=== PATIENT | female | born 1955 | race Caucasian/White ===

== ENCOUNTER → 2016-10-02 | Outpatient (CLI) | payer OTHER ==
[2015-11-12 06:28] VITALS: BP 138/70
[~2016-10-02] MED LIST: ACETAMINOPHN-CO10 ML PO; AMOXICILLIN875 MG PO; CORICIDIN HBP1 EAC1 PO; FLEXERIL 1010 MG/TAB PO; FLONASE ALLERG9.9 ML NS; HYDROCHLOROTHIA1 T15 PO; PREMARIN 0.60.625 M1 PO; VITAMIN D32000 UNI1 PO; XANAX0.5 M1 PO
== END ==
LOC: RAD 08:21
DX: M54.5 Low back pain (principal); G89.29 Other chronic pain

== ENCOUNTER 2016-11-13 09:00 | Outpatient (RCR) | payer OTHER ==
[2015-11-12 06:28] VITALS: BP 138/70
== END 2016-11-13 09:33 | disposition home or self-care (01) ==
LOC: PT 09:00
DX: M54.5 Low back pain (principal)

== ENCOUNTER → 2017-04-30 | Outpatient (CLI) | payer OTHER ==
[2015-11-12 06:28] VITALS: BP 138/70
[2017-04-30 09:06] LABS: EOS # 0.1 (0.04-0.40); EOS % 2.3 % (1.0-5.0); HEMATOCRIT 42.5 % (37.0-47.0); HEMOGLOBIN 13.8 g/dL (12.5-16.0); LYMPH# 1.8 (1.50-4.00); MEAN CELL VOLUME 87 fl (78-100); MEAN CORPUSCULAR HEMOGLOBIN 28 pg (27-31); MEAN CORPUSCULAR HGB CONC 33 g/dL (33-37); MEAN PLATELET VOLUME 10.2 fl (7.4-10.4); MONO # 0.4 (0.20-0.80); PLATELET COUNT 264 K/mm3 (130-400); RED BLOOD COUNT 4.89 M/mm3 (4.10-5.30); RED CELL DISTRIBUTION WIDTH 13.8 % (11.5-14.5); WHITE BLOOD COUNT 5.3 K/mm3 (4.8-10.8)
[2017-04-30 09:23] LABS: ALBUMIN 4.4 g/dL (3.5-5.0); BUN/CREATININE RATIO 23.9 (6.0-26.0); POTASSIUM 4.1 mmol/L (3.6-5.0); TOTAL BILIRUBIN 0.4 mg/dL (0.2-1.3); TOTAL PROTEIN 7.9 g/dL (6.3-8.2)
== END ==
LOC: LAB 08:52
PROVIDERS: Nurse Practitioner Family
DX: R53.81 Other malaise (principal); Z13.220 Encounter for screening for lipoid disorders; E55.9 Vitamin D deficiency, unspecified; L23.5 Allergic contact dermatitis due to other chemical products; J01.41 Acute recurrent pansinusitis; B07.8 Other viral warts

== ENCOUNTER 2017-08-26 19:49 | Emergency (ER) | payer OTHER ==
[~2017-08-26] VITALS: Ht 170.2 cm; Wt 73.6 kg
[2017-08-26 20:31] LABS: EOS # 0.1 (0.04-0.40); EOS % 2.3 % (1.0-5.0); HEMATOCRIT 42.5 % (37.0-47.0); HEMOGLOBIN 13.4 g/dL (12.5-16.0); LYMPH# 2.3 (1.50-4.00); MEAN CELL VOLUME 88 fl (78-100); MEAN CORPUSCULAR HEMOGLOBIN 28 pg (27-31); MEAN CORPUSCULAR HGB CONC 32 g/dL (33-37); MEAN PLATELET VOLUME 11.2 fl (7.4-10.4); MONO # 0.4 (0.20-0.80); NEU # 2.9 (1.40-6.50); PLATELET COUNT 254 K/mm3 (130-400); RED BLOOD COUNT 4.83 M/mm3 (4.10-5.30); RED CELL DISTRIBUTION WIDTH 13.9 % (11.5-14.5); WHITE BLOOD COUNT 5.8 K/mm3 (4.8-10.8)
[2017-08-26 20:40] LABS: ALBUMIN 4.2 g/dL (3.5-5.0); BUN/CREATININE RATIO 25.3 (6.0-26.0); POTASSIUM 3.9 mmol/L (3.6-5.0); TOTAL BILIRUBIN 0.3 mg/dL (0.2-1.3); TOTAL PROTEIN 7.6 g/dL (6.3-8.2)
[2017-08-26 20:46] LABS: CKMB ISOENZYME 3.1 ng/mL (0.6-3.5); TROPONIN-I < 0.03 ng/mL (0.00-0.06)
[2017-08-26] MEDS ORDERED: PREDNISONE20 M1 PO (22:07)
[2017-08-26] MEDS ORDERED: TUSSIONEX PENN115 ML PO (22:07)
[2017-08-26] MEDS ORDERED: ALBUTEROL2.5 MG/3 M IH (22:07)
[2017-08-26] MEDS ORDERED: ZITHROMAX 250M250 MG PO (22:07)
[2017-08-26 22:35] VITALS: BP 164/97
== END 2017-08-26 22:35 | disposition home or self-care (01) ==
LOC: ED 19:49
PROVIDERS: Nurse Practitioner Primary Care
DX: J18.9 Pneumonia, unspecified organism (principal); Z79.899 Other long term (current) drug therapy
CPT/HCPCS: J0696; J2930

== ENCOUNTER → 2017-09-14 | Outpatient (CLI) | payer OTHER ==
[2017-08-26 22:35] VITALS: BP 164/97
[~2017-09-14] MED LIST changes: +ALBUTEROL2.5 MG/3 M IH; +PREDNISONE20 M1 PO; +TUSSIONEX PENN115 ML PO; +ZITHROMAX 250M250 MG PO
== END ==
LOC: RAD 13:48
DX: J18.9 Pneumonia, unspecified organism (principal)

== ENCOUNTER 2017-10-27 09:54 | Emergency (ER) | payer OTHER ==
[~2017-10-27] VITALS: Ht 170.2 cm; Wt 71.8 kg
[2017-10-27 10:27] LABS: HEMATOCRIT 39.2 % (37.0-47.0); MEAN CELL VOLUME 85 fl (78-100); MEAN CORPUSCULAR HEMOGLOBIN 28 pg (27-31); MEAN CORPUSCULAR HGB CONC 33 g/dL (33-37); MEAN PLATELET VOLUME 11.3 fl (7.4-10.4); PLATELET COUNT 204 K/mm3 (130-400); RED BLOOD COUNT 4.61 M/mm3 (4.10-5.30); RED CELL DISTRIBUTION WIDTH 14.1 % (11.5-14.5); WHITE BLOOD COUNT 11.7 K/mm3 (4.8-10.8)
[2017-10-27 10:35] LABS: BUN/CREATININE RATIO 19.1 (6.0-26.0); CALCIUM 9.1 mg/dL (8.4-10.2); LYMPHOCYTE 9 % (20-51); MONOCYTE 10 % (3-10); NEUTROPHILS 81 % (42-75); POTASSIUM 3.7 mmol/L (3.6-5.0); TOTAL BILIRUBIN 0.9 mg/dL (0.2-1.3); TOTAL PROTEIN 7.2 g/dL (6.3-8.2)
[2017-10-27 11:29] LABS: URINE APPEARANCE CLEAR; URINE BILIRUBIN NEGATIVE (NEGATIVE); URINE BLOOD NEGATIVE (NEGATIVE); URINE COLOR YELLOW; URINE GLUCOSE NEGATIVE (NEGATIVE); URINE KETONE SMALL (NEGATIVE); URINE LEUKOCYTE ESTERASE NEGATIVE (NEGATIVE); URINE NITRATE NEGATIVE (NEGATIVE); URINE PROTEIN(semi-quant) TRACE mg/dL (NEGATIVE); URINE UROBILINOGEN NORMAL (NORMAL)
[2017-10-27 11:30] LABS: URINE MUCUS PRESENT (NOT PRESENT); URINE WBC 0-1 /hpf (0-3)
[2017-10-27 11:40] LABS: D-DIMER 0.9 mg/L FEU (0.15-0.50)
[2017-10-27 15:17] VITALS: BP 135/61
== END 2017-10-27 15:10 | disposition short-term general hospital (02) ==
LOC: ED 09:54
PROVIDERS: Nurse Practitioner Primary Care
DX: R55 Syncope and collapse (principal); R79.89 Other specified abnormal findings of blood chemistry; J18.9 Pneumonia, unspecified organism; M54.5 Low back pain; Z79.899 Other long term (current) drug therapy
CPT/HCPCS: J2405; J7030; Q9967

== ENCOUNTER → 2017-12-23 | Outpatient (CLI) | payer OTHER ==
[2017-12-23 09:06] LABS: ALBUMIN 4.7 g/dL (3.5-5.0); CALCIUM 9.7 mg/dL (8.4-10.2); TOTAL BILIRUBIN 0.5 mg/dL (0.2-1.3); TOTAL PROTEIN 7.4 g/dL (6.3-8.2)
== END ==
LOC: LAB 08:26
PROVIDERS: Internal Medicine Cardiovascular Disease
DX: E78.5 Hyperlipidemia, unspecified (principal); Z79.01 Long term (current) use of anticoagulants

== ENCOUNTER 2018-01-05 08:26 | Outpatient (RCR) | payer OTHER | END 2018-04-05 | disposition home or self-care (01) | LOC: CARDREHAB | DX: I50.22 Chronic systolic (congestive) heart failure (principal) ==

== ENCOUNTER → 2018-02-02 | Outpatient (CLI) | payer OTHER | LOC: RAD 11:13 | DX: R22.42 Localized swelling, mass and lump, left lower limb (principal); S43.492A Other sprain of left shoulder joint, initial encounter; S93.402A Sprain of unspecified ligament of left ankle, initial encounter ==

== ENCOUNTER → 2018-02-18 | Outpatient (CLI) | payer OTHER ==
[2018-02-18 16:02] LABS: EOS # 0.1 (0.04-0.40); EOS % 2.1 % (1.0-5.0); HEMATOCRIT 35.1 % (37.0-47.0); HEMOGLOBIN 11.4 g/dL (12.5-16.0); LYMPH# 1.7 (1.50-4.00); MEAN CELL VOLUME 90 fl (78-100); MEAN CORPUSCULAR HEMOGLOBIN 29 pg (27-31); MEAN CORPUSCULAR HGB CONC 33 g/dL (33-37); MEAN PLATELET VOLUME 10.3 fl (7.4-10.4); MONO # 0.4 (0.20-0.80); NEU # 2.1 (1.40-6.50); PLATELET COUNT 225 K/mm3 (130-400); RED BLOOD COUNT 3.89 M/mm3 (4.10-5.30); RED CELL DISTRIBUTION WIDTH 16.7 % (11.5-14.5); WHITE BLOOD COUNT 4.3 K/mm3 (4.8-10.8)
[2018-02-18 16:15] LABS: ALBUMIN 4.5 g/dL (3.5-5.0); CALCIUM 9.3 mg/dL (8.4-10.2); POTASSIUM 3.5 mmol/L (3.6-5.0); TOTAL BILIRUBIN 0.6 mg/dL (0.2-1.3)
[2018-02-18 16:31] LABS: D-DIMER 0.2 mg/L FEU (0.15-0.50)
== END ==
LOC: LAB 15:39
PROVIDERS: Physician Assistant
DX: M25.572 Pain in left ankle and joints of left foot (principal)

== ENCOUNTER 2018-04-06 09:00 | Outpatient (RCR) | payer OTHER | END 2018-05-03 09:05 | disposition home or self-care (01) | LOC: CARDREHAB 09:00 | DX: I50.22 Chronic systolic (congestive) heart failure (principal) ==

== ENCOUNTER → 2018-07-07 | Outpatient (CLI) | payer OTHER ==
[2018-07-07 16:47] LABS: POTASSIUM 3.8 mmol/L (3.6-5.0)
== END ==
LOC: LAB 16:09
PROVIDERS: Internal Medicine Cardiovascular Disease
DX: I10 Essential (primary) hypertension (principal)

== ENCOUNTER → 2018-10-28 | Outpatient (CLI) | payer OTHER ==
[~2018-10-28] VITALS: Ht 170.2 cm; Wt 71.8 kg
[~2018-10-28] MED LIST changes: +ALDACTONE 25MG25 MG PO; +CARVEDILOL12.5 MG PO; +CETIRIZINE HCL10 MG PO; +ELIQUIS5 MG PO; +ENTRESTO 49 MG1 EACH PO; +FAMOTIDINE20 MG PO
[2018-10-28 08:21] LABS: ALBUMIN 4.2 g/dL (3.4-4.8); POTASSIUM 4.3 mmol/L (3.5-5.1)
[2018-10-28 08:22] LABS: CALCIUM 9.2 mg/dL (8.3-10.5)
[2018-10-28 08:24] LABS: PARTIAL THROMBOPLASTIN TIME 24.4 SECONDS (21.0-32.0); TOTAL PROTEIN 7.4 g/dL (6.2-8.1)
[2018-10-28 08:25] LABS: TOTAL BILIRUBIN 0.6 mg/dL (0.2-1.2)
[2018-10-28 08:31] LABS: EOS # 0.1 (0.04-0.40); EOS % 1.6 % (1.0-5.0); HEMATOCRIT 38.7 % (37.0-47.0); HEMOGLOBIN 12.3 g/dL (12.5-16.0); LYMPH# 1.7 (1.50-4.00); MEAN CELL VOLUME 91 fl (78-100); MEAN CORPUSCULAR HEMOGLOBIN 29 pg (27-31); MEAN CORPUSCULAR HGB CONC 32 g/dL (33-37); MONO # 0.3 (0.20-0.80); NEU # 2.3 (1.40-6.50); PLATELET COUNT 207 K/mm3 (130-400); RED BLOOD COUNT 4.24 M/mm3 (4.10-5.30); RED CELL DISTRIBUTION WIDTH 13.4 % (11.5-14.5); WHITE BLOOD COUNT 4.4 K/mm3 (4.8-10.8)
[2018-10-28 08:32] LABS: URINE APPEARANCE CLEAR; URINE BILIRUBIN NEGATIVE (NEGATIVE); URINE BLOOD NEGATIVE (NEGATIVE); URINE COLOR YELLOW; URINE GLUCOSE NEGATIVE (NEGATIVE); URINE KETONE NEGATIVE (NEGATIVE); URINE LEUKOCYTE ESTERASE TRACE (NEGATIVE); URINE MUCUS PRESENT (NOT PRESENT); URINE NITRATE NEGATIVE (NEGATIVE); URINE PROTEIN(semi-quant) NEGATIVE (NEGATIVE); URINE UROBILINOGEN NORMAL (NORMAL)
[2018-10-28 08:40] VITALS: BP 117/54
== END ==
LOC: AMSURD 07:52
PROVIDERS: Physician Assistant
DX: Z01.818 Encounter for other preprocedural examination (principal); N81.10 Cystocele, unspecified

== ENCOUNTER → 2019-01-13 | Outpatient (CLI) | payer OTHER ==
[2018-10-28 08:40] VITALS: BP 117/54
== END ==
LOC: RAD 11:00
DX: M19.011 Primary osteoarthritis, right shoulder (principal); R53.81 Other malaise; M62.81 Muscle weakness (generalized)

== ENCOUNTER → 2019-02-14 | Outpatient (CLI) | payer OTHER ==
[2018-10-28 08:40] VITALS: BP 117/54
== END ==
LOC: LAB 09:20
PROVIDERS: Psychiatry & Neurology Neurology
DX: M25.511 Pain in right shoulder (principal)

== ENCOUNTER 2019-02-18 07:14 | Emergency (ER) | payer OTHER ==
[~2019-02-18] VITALS: Ht 170.2 cm; Wt 81.8 kg
[2019-02-18] MEDS ORDERED: AZITHROMYCIN 500MGPK PO (07:32)
[2019-02-18] MEDS ORDERED: ALDACTONE25 M1 PO (07:32)
[2019-02-18] MEDS ORDERED: ATORVASTATIN CA20 MG PO (07:33)
[2019-02-18] MEDS ORDERED: HYDROCODONE AN473 M1 PO (07:34)
[2019-02-18 07:59] LABS: BASO # 0.1 (0.02-0.10); EOS # 0.2 (0.04-0.40); EOS % 2.6 % (1.0-5.0); HEMATOCRIT 40.1 % (37.0-47.0); HEMOGLOBIN 12.9 g/dL (12.5-16.0); LYMPH# 1.9 (1.50-4.00); MEAN CELL VOLUME 91 fl (78-100); MEAN CORPUSCULAR HEMOGLOBIN 29 pg (27-31); MEAN CORPUSCULAR HGB CONC 32 g/dL (33-37); MEAN PLATELET VOLUME 9.8 fl (7.4-10.4); MONO # 0.7 (0.20-0.80); NEU # 3.8 (1.40-6.50); PLATELET COUNT 245 K/mm3 (130-400); RED BLOOD COUNT 4.43 M/mm3 (4.10-5.30); RED CELL DISTRIBUTION WIDTH 13.1 % (11.5-14.5); WHITE BLOOD COUNT 6.6 K/mm3 (4.8-10.8)
[2019-02-18 08:02] LABS: POTASSIUM 4.6 mmol/L (3.5-5.1)
[2019-02-18] MEDS ORDERED: PHENERGAN 25 TA25 MG PO (08:05)
[2019-02-18] MEDS ORDERED: NORCO 325 MG-51 TA1 PO (08:05)
[2019-02-18 08:20] VITALS: BP 135/69
== END 2019-02-18 08:34 | disposition home or self-care (01) ==
LOC: ED 07:14
PROVIDERS: Nurse Practitioner Primary Care
DX: G97.1 Other reaction to spinal and lumbar puncture (principal); J40 Bronchitis, not specified as acute or chronic; I48.91 Unspecified atrial fibrillation; I25.10 Atherosclerotic heart disease of native coronary artery without angina pectoris; I25.2 Old myocardial infarction; F41.9 Anxiety disorder, unspecified; Z98.890 Other specified postprocedural states; Z88.6 Allergy status to analgesic agent
CPT/HCPCS: J2270; J2550

== ENCOUNTER 2019-04-01 09:00 | Outpatient (RCR) | payer OTHER ==
[2018-10-28 08:40] VITALS: BP 117/54
[~2019-04-01 09:00] MED LIST changes: +ALDACTONE25 M1 PO; +ATORVASTATIN CA20 MG PO; +AZITHROMYCIN 500MGPK PO; +HYDROCODONE AN473 M1 PO; +NORCO 325 MG-51 TA1 PO; +PHENERGAN 25 TA25 MG PO
== END 2019-04-01 09:30 | disposition still patient (30) ==
LOC: OT 09:00
DX: G56.01 Carpal tunnel syndrome, right upper limb (principal)

== ENCOUNTER 2019-04-15 08:30 | Outpatient (RCR) | payer OTHER | END 2019-04-15 09:00 | disposition still patient (30) | LOC: PT 08:30 | DX: M75.111 Incomplete rotator cuff tear or rupture of right shoulder, not specified as traumatic (principal) ==

== ENCOUNTER → 2019-08-16 | Outpatient (CLI) | payer OTHER ==
[2019-08-16 12:05] LABS: EOS # 0.1 (0.04-0.40); EOS % 2.8 % (1.0-5.0); HEMATOCRIT 38.7 % (37.0-47.0); LYMPH# 1.8 (1.50-4.00); MEAN CELL VOLUME 89 fl (78-100); MEAN CORPUSCULAR HEMOGLOBIN 28 pg (27-31); MEAN CORPUSCULAR HGB CONC 31 g/dL (33-37); MEAN PLATELET VOLUME 10.5 fl (7.4-10.4); MONO # 0.3 (0.20-0.80); NEU # 2.1 (1.40-6.50); PLATELET COUNT 234 K/mm3 (130-400); RED BLOOD COUNT 4.35 M/mm3 (4.10-5.30); RED CELL DISTRIBUTION WIDTH 13.6 % (11.5-14.5); WHITE BLOOD COUNT 4.4 K/mm3 (4.8-10.8)
[2019-08-16 12:10] LABS: ALBUMIN 4.4 g/dL (3.4-4.8); POTASSIUM 4.6 mmol/L (3.5-5.1)
[2019-08-16 12:11] LABS: CALCIUM 9.5 mg/dL (8.3-10.5)
[2019-08-16 12:13] LABS: TOTAL PROTEIN 7.3 g/dL (6.2-8.1)
[2019-08-16 12:14] LABS: TOTAL BILIRUBIN 0.5 mg/dL (0.2-1.2)
== END ==
LOC: LAB 11:42
PROVIDERS: Physician Assistant
DX: Z13.29 Encounter for screening for other suspected endocrine disorder (principal); I11.0 Hypertensive heart disease with heart failure; I50.20 Unspecified systolic (congestive) heart failure; I48.91 Unspecified atrial fibrillation; R63.5 Abnormal weight gain

== ENCOUNTER 2019-09-05 10:00 | Outpatient (RCR) | payer OTHER | END 2019-11-20 | disposition still patient (30) | LOC: PT | DX: M79.601 Pain in right arm (principal) ==

== ENCOUNTER → 2020-03-27 | Outpatient (CLI) | payer OTHER ==
[2020-03-27 09:48] LABS: EOS # 0.2 (0.04-0.40); HEMATOCRIT 40.7 % (37.0-47.0); LYMPH# 1.7 (1.50-4.00); MEAN CELL VOLUME 86 fl (78-100); MEAN CORPUSCULAR HEMOGLOBIN 27 pg (27-31); MEAN CORPUSCULAR HGB CONC 32 g/dL (33-37); MEAN PLATELET VOLUME 11.1 fl (7.4-10.4); MONO # 0.4 (0.20-0.80); NEU # 3.7 (1.40-6.50); PLATELET COUNT 244 K/mm3 (130-400); RED BLOOD COUNT 4.76 M/mm3 (4.10-5.30); RED CELL DISTRIBUTION WIDTH 13.7 % (11.5-14.5)
[2020-03-27 09:56] LABS: POTASSIUM 4.7 mmol/L (3.5-5.1)
[2020-03-27 09:57] LABS: ALBUMIN 4.5 g/dL (3.4-4.8)
[2020-03-27 09:58] LABS: CALCIUM 9.4 mg/dL (8.3-10.5)
[2020-03-27 09:59] LABS: TOTAL PROTEIN 7.4 g/dL (6.2-8.1)
[2020-03-27 10:01] LABS: TOTAL BILIRUBIN 0.6 mg/dL (0.2-1.2)
== END ==
LOC: LAB 09:08
PROVIDERS: Physician Assistant
DX: I10 Essential (primary) hypertension (principal); E78.5 Hyperlipidemia, unspecified; R53.83 Other fatigue; D64.9 Anemia, unspecified; R74.8 Abnormal levels of other serum enzymes

== ENCOUNTER 2020-05-17 09:50 | Outpatient (RCR) | payer OTHER | END 2020-06-07 17:00 | disposition home or self-care (01) | LOC: PT 09:50 | DX: M79.601 Pain in right arm (principal) ==

== ENCOUNTER → 2021-07-04 | Outpatient (CLI) | payer OTHER ==
[2021-07-04 12:09] LABS: HEMATOCRIT 43.5 % (37.0-47.0); HEMOGLOBIN 14.1 g/dL (12.5-16.0); MEAN PLATELET VOLUME 9.9 fl (7.4-10.4); RED BLOOD COUNT 4.98 M/mm3 (4.10-5.30); RED CELL DISTRIBUTION WIDTH 14.1 % (11.5-14.5); WHITE BLOOD COUNT 5.8 K/mm3 (4.8-10.8)
[2021-07-04 12:18] LABS: ALBUMIN 4.3 g/dL (3.4-4.8)
[2021-07-04 12:19] LABS: POTASSIUM 4.8 mmol/L (3.5-5.1)
[2021-07-04 12:21] LABS: TOTAL PROTEIN 7.3 g/dL (6.2-8.1)
[2021-07-04 12:23] LABS: TOTAL BILIRUBIN 0.7 mg/dL (0.2-1.2)
[2021-07-04 12:28] LABS: MAGNESIUM 2.07 mg/dL (1.60-2.60)
== END ==
LOC: LAB 11:53
PROVIDERS: Internal Medicine Cardiovascular Disease
DX: I48.0 Paroxysmal atrial fibrillation (principal)

== ENCOUNTER → 2022-04-14 | Outpatient (CLI) | payer MEDICARE, OTHER | LOC: RAD 11:19 | DX: R05.9 Cough, unspecified (principal) ==

== ENCOUNTER → 2022-06-17 | Outpatient (CLI) | payer MEDICARE, OTHER ==
[2022-06-17 12:30] LABS: BASO # 0.03 K/mm3 (0.02-0.10); EOS # 0.26 K/mm3 (0.04-0.40); EOS % 4.8 % (1.0-5.0); HEMATOCRIT 42.2 % (37.0-47.0); HEMOGLOBIN 13.4 g/dL (12.5-16.0); LYMPH# 1.58 K/mm3 (1.50-4.00); MEAN CELL VOLUME 87 fl (78-100); MEAN CORPUSCULAR HEMOGLOBIN 28 pg (27-31); MEAN CORPUSCULAR HGB CONC 32 g/dL (33-37); MEAN PLATELET VOLUME 10.4 fl (7.4-10.4); NEU # 3.26 K/mm3 (1.40-6.50); PLATELET COUNT 235 K/mm3 (130-400); RED BLOOD COUNT 4.86 M/mm3 (4.10-5.30); RED CELL DISTRIBUTION WIDTH 14.3 % (11.5-14.5); WHITE BLOOD COUNT 5.4 K/mm3 (4.8-10.8)
[2022-06-17 12:32] LABS: ALBUMIN 4.5 g/dL (3.4-4.8)
[2022-06-17 12:33] LABS: CALCIUM 9.7 mg/dL (8.3-10.5)
[2022-06-17 12:34] LABS: TOTAL PROTEIN 7.2 g/dL (6.2-8.1)
[2022-06-17 12:36] LABS: TOTAL BILIRUBIN 0.5 mg/dL (0.2-1.2)
== END ==
LOC: LAB 12:05
PROVIDERS: Physician Assistant
DX: Z00.00 Encounter for general adult medical examination without abnormal findings (principal); Z13.1 Encounter for screening for diabetes mellitus; Z12.31 Encounter for screening mammogram for malignant neoplasm of breast; I21.4 Non-ST elevation (NSTEMI) myocardial infarction; F43.22 Adjustment disorder with anxiety; I25.5 Ischemic cardiomyopathy; J30.2 Other seasonal allergic rhinitis; I11.0 Hypertensive heart disease with heart failure; I50.20 Unspecified systolic (congestive) heart failure; E55.9 Vitamin D deficiency, unspecified; K90.9 Intestinal malabsorption, unspecified

== ENCOUNTER → 2023-07-21 | Outpatient (CLI) | payer MEDICARE, OTHER ==
[2023-07-21 09:57] LABS: BASO # 0.03 K/mm3 (0.02-0.10); EOS # 0.13 K/mm3 (0.04-0.40); HEMOGLOBIN 13.4 g/dL (12.5-16.0); LYMPH# 1.42 K/mm3 (1.50-4.00); MEAN CELL VOLUME 88 fl (78-100); MEAN CORPUSCULAR HEMOGLOBIN 28 pg (27-31); MEAN CORPUSCULAR HGB CONC 32 g/dL (33-37); MONO # 0.34 K/mm3 (0.20-0.80); NEU # 2.46 K/mm3 (1.40-6.50); PLATELET COUNT 212 K/mm3 (130-400); RED BLOOD COUNT 4.75 M/mm3 (4.10-5.30); RED CELL DISTRIBUTION WIDTH 13.3 % (11.5-14.5); WHITE BLOOD COUNT 4.4 K/mm3 (4.8-10.8)
[2023-07-21 10:03] LABS: ALBUMIN 4.3 g/dL (3.4-4.8)
[2023-07-21 10:04] LABS: CALCIUM 9.5 mg/dL (8.3-10.5)
[2023-07-21 10:05] LABS: TOTAL PROTEIN 6.9 g/dL (6.2-8.1)
[2023-07-21 10:07] LABS: TOTAL BILIRUBIN 0.7 mg/dL (0.2-1.2)
[2023-07-21 22:38] LABS: HEPATITIS C VIRUS ANTIBODY Negative (Negative)
== END ==
LOC: LAB 09:41
PROVIDERS: Physician Assistant
DX: Z13.29 Encounter for screening for other suspected endocrine disorder (principal); Z13.1 Encounter for screening for diabetes mellitus; Z11.59 Encounter for screening for other viral diseases; I10 Essential (primary) hypertension; E78.5 Hyperlipidemia, unspecified; K90.9 Intestinal malabsorption, unspecified